=== PATIENT | female | born 1990 | race Caucasian/White ===

== ENCOUNTER → 2018-06-02 09:17 | Outpatient (CLI) | payer BC, SELFPAY ==
--- NOTE | 2018-06-02 09:21 | US_ITS ---
US transvaginal HISTORY: Pelvic pain, endometriosis, polycystic ovarian syndrome ITS.REASON: pelvic pain ORDERING PHYSICIAN: Cortez Bobo MD PATIENT AGE: 28 years Comparison: 04/23/2014 FINDINGS: The uterus is 9 x 3.7 x 4.5 cm with a combined endometrial thickness of 5 mm. No uterine mass evident. The left ovary is 3 x 2.8 cm and has a few small follicles. The right ovary is 5 x 5 cm and contains a 4 x 4 centimeters cyst. No internal echoes or septations. No cul-de-sac fluid evident. IMPRESSION: 1. 4 cm benign-appearing right ovarian cyst 2. Small follicles of the left ovary.
== END ==
PROVIDERS: Family Provider Family Medicine; Visit Provider Obstetrics & Gynecology
DX: R10.2 Pelvic and perineal pain (principal)
CPT/HCPCS: 76830

== ENCOUNTER → 2018-09-26 11:34 | Outpatient (CLI) | payer BC, SELFPAY ==
[2018-09-26 12:54] LABS: Basophils # 0.1 K/mm3 (0-0.2); Basophils % 0.5 % (0.1-2.0); Eosinophils % 0.3 % (0.1-12.0); Hematocrit 41.5 % (37.0-47.0); Hemoglobin 13.8 g/dL (12.2-16.2); Lymphocytes # 1.6 K/mm3 (0.7-4.5); Lymphocytes % 15.9 % (10-50); Mean Corpuscular HGB Conc 33.3 g/dL (31.8-35.4); Mean Corpuscular Hemoglobin 29.8 pg (27.0-31.2); Mean Corpuscular Volume 89.4 fl (81-99); Mean Platelet Volume 7.7 fl (7.4-10.4); Monocytes # 0.4 K/mm3 (0.1-1.0); Monocytes % 3.9 % (1.7-9.3); Neutrophils # 7.9 K/mm3 (1.8-7.8); Neutrophils % 79.4 % (37.0-80.0); Platelet Count 277 K/mm3 (142-424); Red Blood Count 4.64 M/mm3 (4.20-5.40); White Blood Count 9.9 K/mm3 (4.8-10.8)
[2018-09-26 13:10] LABS: Amphetamine/Metha Screen,Urine Negative ng/mL (<1000); Barbiturates Screen,Urine Negative ng/mL (<200); Benzodiazepines Screen,Urine Negative ng/mL (<200); Cannabinoid Screen,Urine Negative ng/mL (<50); Cocaine Screen,Urine Negative ng/mL (<300); Methadone Screen,Urine Negative ng/mL (<300); Opiate Screen,Urine Negative ng/mL (<300); Phencyclidine Screen,Urine Negative ng/mL (<25)
[2018-09-27 08:28] LABS: HIV Screen 4th Generation wRfx Non Reactive (Non Reactive)
[2018-09-27 14:18] LABS: Hepatitis B Surface Antigen Negative (Negative); Rapid Plasma Reagin Ab Titer Non Reactive (NonRea<1:1); Rubella Antibodies, IgG 2.26 index (Immune >0.99)
== END ==
PROVIDERS: Visit Provider Obstetrics & Gynecology
DX: Z34.90 Encounter for supervision of normal pregnancy, unspecified, unspecified trimester (principal)
CPT/HCPCS: 36415; 80305; 84443; 85025; 86592; 86703; 86762; 86850; 87340; G0432

== ENCOUNTER → 2018-09-28 10:42 | Outpatient (CLI) | payer BC, SELFPAY ==
[2018-09-28 13:43] LABS: Free Thyroxine Index 3.8 ug/dL (5.93-13.13); T4 (Thyroxine) 11.4 ug/dl (4.7-13.3); Thyroid Stimulating Hormone 0.11 uIU/ml (0.358-3.740); Triiodothryronine (T3) Uptake 33 % (31-39)
== END ==
PROVIDERS: Visit Provider Obstetrics & Gynecology
DX: Z34.90 Encounter for supervision of normal pregnancy, unspecified, unspecified trimester (principal); R79.89 Other specified abnormal findings of blood chemistry
CPT/HCPCS: 36415; 84436; 84443; 84479

== ENCOUNTER → 2018-11-20 13:35 | Outpatient (CLI) | payer BC, SELFPAY ==
[2018-11-23 02:15] LABS: AFP Value 27.3 ng/mL (.); DIA MoM 1.53 (.); DIA Value 234.79 pg/mL (.); DSR (Second Trimester) 1 IN 776 (.); Gest. Age on Collection Date 16.7 WEEKS (.); Maternal Age At EDD 29.9 yr (.); OSBR Risk 1 IN 10000 (.); Results Report (.); hCG MoM 2.01 (.); uE3 MoM 1.06 (.); uE3 Value 0.98 ng/mL (.)
[2018-11-23 07:48] LABS: Gestat. Age Based On EDD (.)
== END ==
PROVIDERS: Visit Provider Obstetrics & Gynecology
DX: Z34.90 Encounter for supervision of normal pregnancy, unspecified, unspecified trimester (principal); Z3A.16 16 weeks gestation of pregnancy
CPT/HCPCS: 36415; 82106

== ENCOUNTER → 2019-01-31 11:26 | Outpatient (CLI) | payer BC, SELFPAY ==
[2019-01-31 14:47] LABS: Glucose 1 Hour 137 mg/dL (74-106)
== END ==
PROVIDERS: Visit Provider Obstetrics & Gynecology
DX: Z34.90 Encounter for supervision of normal pregnancy, unspecified, unspecified trimester (principal)
CPT/HCPCS: 36415

== ENCOUNTER → 2019-02-01 10:44 | Outpatient (CLI) | payer BC, SELFPAY ==
[2019-02-01 11:08] LABS: Glucose,Fasting 79 mg/dL (60-105)
[2019-02-01 12:35] LABS: Glucose 1 Hour 129 mg/dL (74-106)
[2019-02-01 14:08] LABS: Glucose 2 Hour 138 mg/dL (74-106)
== END ==
PROVIDERS: Visit Provider Obstetrics & Gynecology
DX: Z34.90 Encounter for supervision of normal pregnancy, unspecified, unspecified trimester (principal)
CPT/HCPCS: 36415; 82951

== ENCOUNTER 2019-03-08 16:12 | Outpatient (CLI) | payer BC, SELFPAY ==
[2019-03-08 16:21] VITALS: BMI 35.7
[2019-03-08 16:33] VITALS: BP 138/80; PULSE 101; RESP 18; TEMP 36.8; O2SAT 99; BMI 35.7
[2019-03-08 16:34] LABS: Microscopic, Urine URINE MICROSCOPIC (MICROSCOPIC)
[2019-03-08 16:35] LABS: Appearance,Urine CLEAR (Clear); Bilirubin,Urine Negative (Negative); Blood, Urine Negative (Negative); Color,Urine YELLOW (Yellow); Glucose,Urine (UA) Negative (Negative); Ketones,Urine Negative (Negative); Leukocyte Esterase,Urine Negative (Negative); Nitrate,Urine Negative (Negative); Protein,Urine Negative (Negative); Urobilinogen,Urine 0.2 EU/dl (0.2)
[2019-03-08 16:43] LABS: Amphetamine/Metha Screen,Urine Negative ng/mL (<1000); Bacteria,Urine 4+ /lpf; Barbiturates Screen,Urine Negative ng/mL (<200); Benzodiazepines Screen,Urine Negative ng/mL (<200); Cannabinoid Screen,Urine Negative ng/mL (<50); Cocaine Screen,Urine Negative ng/mL (<300); Methadone Screen,Urine Negative ng/mL (<300); Opiate Screen,Urine Negative ng/mL (<300); Phencyclidine Screen,Urine Negative ng/mL (<25); WBC,Urine Occasional #/hpf (0-3)
[2019-03-08 17:23] LABS: Fetal Fibronectin (Rapid) Negative (Negative)
== END 2019-03-08 17:32 | disposition home or self-care (01) ==
LOC: OBOUT 16:13 → OB 16:13
PROVIDERS: PCP Family Medicine; Visit Provider Obstetrics & Gynecology
DX: O47.03 False labor before 37 completed weeks of gestation, third trimester (principal); Z3A.31 31 weeks gestation of pregnancy
CPT/HCPCS: 59025; 80305; 81001; 82731; 87077; 87086; 87088; 96372

== ENCOUNTER → 2019-04-03 15:06 | Outpatient (CLI) | payer BC, SELFPAY | PROVIDERS: Visit Provider Obstetrics & Gynecology | DX: Z34.90 Encounter for supervision of normal pregnancy, unspecified, unspecified trimester (principal) | CPT/HCPCS: 86403 ==

== ENCOUNTER 2019-04-19 03:37 | Inpatient (IN) ==
[2019-04-19 04:11] LABS: Microscopic, Urine URINE MICROSCOPIC (MICROSCOPIC)
[2019-04-19 04:14] LABS: Appearance,Urine CLEAR (Clear); Bilirubin,Urine Negative (Negative); Blood, Urine Negative (Negative); Color,Urine YELLOW (Yellow); Glucose,Urine (UA) Negative (Negative); Ketones,Urine Negative (Negative); Leukocyte Esterase,Urine Negative (Negative); PH,Urine 6.5 (5.0-8.5); Protein,Urine Negative (Negative); Urobilinogen,Urine 0.2 EU/dl (0.2)
[2019-04-19 04:22] LABS: Amphetamine/Metha Screen,Urine Negative ng/mL (<1000); Barbiturates Screen,Urine Negative ng/mL (<200); Benzodiazepines Screen,Urine Negative ng/mL (<200); Cannabinoid Screen,Urine Negative ng/mL (<50); Cocaine Screen,Urine Negative ng/mL (<300); Methadone Screen,Urine Negative ng/mL (<300); Opiate Screen,Urine Negative ng/mL (<300); Phencyclidine Screen,Urine Negative ng/mL (<25)
[2019-04-19 04:23] LABS: Bacteria,Urine Trace /lpf; Squamous Epithelial Cell,Urine Occasional #/hpf (0-5); WBC,Urine Occasional #/hpf (0-3)
[2019-04-19 05:39] LABS: Basophils % 0.3 % (0.1-2.0); Eosinophils # 0.1 K/mm3 (0.0-0.4); Eosinophils % 0.6 % (0.1-12.0); Hematocrit 38.4 % (37.0-47.0); Hemoglobin 12.2 g/dL (12.2-16.2); Lymphocytes # 2.2 K/mm3 (0.7-4.5); Lymphocytes % 19.2 % (10-50); Mean Corpuscular HGB Conc 31.7 g/dL (31.8-35.4); Mean Corpuscular Volume 86.7 fl (81-99); Mean Platelet Volume 8.4 fl (7.4-10.4); Monocytes # 0.6 K/mm3 (0.1-1.0); Neutrophils # 8.8 K/mm3 (1.8-7.8); Platelet Count 292 K/mm3 (142-424); Red Blood Count 4.43 M/mm3 (4.20-5.40); Red Cell Distribution Width 14.7 % (11.5-17.5); White Blood Count 11.7 K/mm3 (4.8-10.8)
[2019-04-19 05:55] LABS: Anion Gap 15.6 mEq/L (5-15); Calcium 8.6 mg/dL (8.5-10.1)
--- NOTE | 2019-04-19 07:08 | Progress Note ---
Internal Medicine - PN: Subj *Date: 04/19/19 *Time: 07:06 Interval history: This 28-year-old 3 para 2 AB 0 white female with 2 previous sections was admitted in active labor at 3 cm of dilatation at 38-2/7 weeks. She had been scheduled for a repeat section and bilateral tubal ligation next week. On admission the patient is uncomfortable. Her cervix is 3 cm dilated. The baby appears to be in a breech position. Plan is to proceed to repeat and tubal ligation this morning. Exam Vital signs and Labs for Last 24 Hours: Temp Pulse Resp BP Pulse Ox 98.4 F 89 18 144/81 H 100 04/19/19 03:58 04/19/19 03:58 04/19/19 03:58 04/19/19 03:58 04/19/19 03:58 Laboratory Results - last 24 hr 04/19/19 03:55: Urine Color Yellow, Urine Appearance Clear, Urine pH 6.5, Ur Sp ecific [place] 1.010, Urine Protein Negative, Urine Glucose (UA) Negative, Urine Ketones Negative, Urine Blood Negative, Urine Nitrate Negative, Urine Bilirubin Negative, Urine Urobilinogen 0.2, Ur Leukocyte Esterase Negative, Urine WBC Occasional, Ur Squamous Epith Cells Occasional, Urine Bacteria Trace 04/19/19 03:55: Membrane Rupture Negative 04/19/19 03:55: Urine Opiates Screen Negative, Urine Methadone Screen Negative, Ur Barbituates Screen Negative, Ur Phencyclidine Scrn Negative, Ur Amphetamines Screen Negative, U Benzodiazepines Scrn Negative, Urine Cocaine Screen Negative, U Marijuana (THC) Screen Negative 04/19/19 05:20: WBC 11.7 H, RBC 4.43, Hgb 12.2, Hct 38.4, MCV 86.7, MCH 27.5, MCHC 31.7 L, RDW 14.7, Plt Count 292, MPV 8.4, Neut % (Auto) 75.0, Lymph % (Auto) 19.2, [place] % (Auto) 5.0, Eos % (Auto) 0.6, Baso % (Auto) 0.3, Neut # (Auto) 8.8 H, Lymph # (Auto) 2.2, [place] # (Auto) 0.6, Eos # (Auto) 0.1, Baso # (Auto) 0.0 04/19/19 05:20: Sodium 135 L, Potassium 3.6, Chloride 104, Carbon Dioxide 19 L, Anion Gap 15.6 H, BUN 7, Creatinine 0.59, Estimated Creat Clear 191, Estimated GFR 121, Est GFR ( Amer) 146, Glucose 85, Calcium 8.6 I & O for Last 24 hours: Intake & Output 04/16/19 04/17/19 04/18/19 04/19/19 11:59 11:59 11:59 11:59 Weight 190 lb
--- NOTE | 2019-04-19 07:31 | Progress Note ---
[facility] Anesthesia Checklist - Structural Data Admitted From: Inpatient Planned Operative Procedure/s: c/section Consent for Planned Operative Procedure(s) Verified: Yes - Airway Assessment C-Spine Mobility Assessed: Yes TMJ Mobility Assessed: Yes Dentition: Good Dentition - Neurological Assessment Level of Consciousness: Awake, Alert, Appropriate - Anesthesia Plan Anesthesia Risk discussed: Yes Anesthesia Plan: Verified ASA Class: II Anesthesia Type: Spinal [facility] History I have reviewed the patient's past medical history: Yes *Have you ever received a pneumonia vaccine?: No *Have you received a flu vaccine this season?: No Other Medical History: Reports: Other Other Surgeries: Yes: , Other Amputation: No Fractures: No - *Social History Smoking Status: Never smoker Alcohol Intake: never Alcohol Intake Frequency:: other Substance Use Type: denies use *Occupational Status:: employed *Travel in the last 8 weeks: None Family Hx:: Coronary Artery Disease, Cancer Para: 2
--- NOTE | 2019-04-19 08:30 | Progress Note ---
[facility] Anesthesia Record Part I Intake, IV Amount: 1,600 Estimated blood loss (mL): 800 Urine output (mL): 0 (NM) Blood Products used (#): none Blood Pressure: 134/65 SaO2: 98 Pulse Rate: 88 Respiratory Rate: 16 Temperature: 97.5 F Patient is:: Awake, Stable Stable to PACU at:: 08:25
--- NOTE | 2019-04-19 08:30 | Progress Note ---
[facility] Anesthesia Record Part II Discharge Time: 08:55 Destination: Obstetric PACU nurse assessment reviewed?: Yes Patient Condition:: Good Anesthesia Complications:: None Swallowing reflex intact?: Yes Cyanosis?: No
--- NOTE | 2019-04-19 08:30 | Operative Note ---
Date of procedure: 04/19/19 Pre-op Diagnosis:: 1. Term intrauterine , in labor. 2. Previous sections. 3. Breech presentation. 4. Desire for sterilization. Post-op Diagnosis:: Same, 9/9, 6 pound 3 ounce, 18.5 inch female , born at 0750. Procedure performed:: Repeat low transverse cervical section, breech extraction, bilateral tubal ligation. Surgeon:: Cortez Bobo MD Clinical Trial Associate(s):: SIRIA Casas STAFF FORESTER:: Delvin Sahni Anesthesia: spinal Estimated blood loss (mL): 400 Operative findings:: Breech presentation, previous sections. Operative note:: After the patient was prepped and draped in usual fashion and spinal anesthesia was administered, a low Pfannenstiel incision was made through the previous incision, and the fat and fascia were in the usual fashion, bleeders being clamped and coagulated along the way. The peritoneum was entered with Metzenbaum scissors and extended above and below. The bladder peritoneum was sharply and bluntly dissected from the area of incision, and the bladder was protected with a bladder blade. The uterus was entered in low transverse fashion with a knife, and the incision was extended bluntly, bilaterally. The baby was found to be in the LST position of the breech and, with appropriate f undal pressure, a breech extraction was easily accomplished. There was a loose nuchal cord x1 the cord pH is pending. The baby was handed into the arms of the attending pallet assembler, Dr. Siegel, who assigned Apgars of 9 at 1 minute and 9 at 5 minutes to this 6 pound 3 ounce, 18.5 inch female , born at 0750. Baby was taken to the nursery in excellent condition, along with the father, who is been present in the operating room. The placenta was delivered manually, intact. A ring forceps was used to assure adequate drainage to the cervix; this was then passed off the field, as a nonsterile instrument. The uterus was closed in 2 layers, the first a running lock suture of #1 Vicryl as an endometrial layer, followed by a running unlocked suture with #1 Vicryl as a myometrial layer, imbricating over the first. The bladder peritoneum was closed with a running unlocked suture of 2-0 Vicryl. Blood and clots were then swept from the gutters, and the tubes and ovaries were inspected and found to be normal. The patient was again asked if she wished to proceed with tubal sterilization, and she concurred. Therefore, first the right tube in the left was grasped in its midsection. The base of the tented up portion of each tube was crushed with a Tomeka clamp, and ligated with 2-0 Vicryl. The intervening segments of the tubes were excised with Metzenbaum scissors, and the stump coagulated with the Bovie. There was no undue bleeding. The peritoneum was grasped with 3 Tomeka clamps, and closed with a running semi-lock suture of 0 Vicryl. The muscle was approximated with a running unlocked suture of 0 Vicryl. Fascia was closed with a running lock suture of #1 Vicryl. The subcutaneous fat and Viviana's fascia were closed with a running unlocked suture of 2-0 Vicryl. The skin was closed with a subcuticular suture of 3-0 Vicryl, and appropriately dressed. The sponge needle count was correct. The estimated blood loss was 400 cc. The urine is clear in the Hopper catheter. A pelvic examination at the close of the procedure expressed blood and clots from the involuting uterus, with IV Pitocin running. The patient tolerated the procedure well, and was taken to PACU in excellent condition. Her blood type is O+. Her rubella titer is immune. She plans to breast-feed. Condition: stable Disposition: PACU Specimens:: Bilateral tubal segments Complications:: None
--- NOTE | 2019-04-19 14:01 | Pharmacy Consult Notes ---
[facility] Pharmacy VTE Monitoring - Patient Demographics Admission date: 04/19/19 Report Date: 04/19/19 Time: 14:01 Allergies/Adverse Reactions: Patient Allergies progesterone Adverse Reaction (Severe, Verified 04/17/19 10:22) skin reaction adhesive tape Adverse Reaction (Mild, Verified 04/19/19 05:52) RED SKIN Height: 1.52 m Weight: 86.183 kg - VTE Risk Labs: VTE Related Lab Results Hgb 12.2 g/dL (12.2-16.2) 04/19/19 05:20 Hct 38.4 % (37.0-47.0) 04/19/19 05:20 Plt Count 292 K/mm3 (142-424) 04/19/19 05:20 BUN 7 mg/dL (7-18) 04/19/19 05:20 Creatinine 0.59 mg/dL (0.55-1.02) 04/19/19 05:20 Estimated Creat Clear 191 mL/min (50-200) 04/19/19 05:20 Clinical Trial Participant: No - Prophylaxis VTE Prophylaxis Ordered?: Yes Types of VTE Prophylaxis: IPCS Knee High (POST OP)
[2019-04-20 06:44] LABS: Hemoglobin 8.9 g/dL (12.2-16.2)
--- NOTE | 2019-04-20 07:18 | Progress Note ---
Internal Medicine - PN: Subj *Date: 04/20/19 *Time: 07:16 Interval history: This is /postop day #1. The patient is afebrile. Vital signs stable. Wound clean. Abdomen soft. Lochia normal. Uterine fundus involuting well. She experienced some dizziness/nausea during the night (upon standing) and states that she has motion sickness. She was initially treated with Phenergan without help, and subsequently with meclizine, which has relieved the symptoms. Her hemoglobin is 8.9 g. I am going to start her on oral iron. Her Hopper is out and she has voided well. Exam Vital signs and Labs for Last 24 Hours: Temp Pulse Resp BP Pulse Ox 97.5 F L 86 17 123/67 98 04/19/19 09:25 04/19/19 09:25 04/19/19 09:25 04/19/19 09:25 04/19/19 09:25 Laboratory Results - last 24 hr 04/19/19 02:35: Urine Color Yellow, Urine Appearance Clear, Urine pH 6.5, Ur Specific [place] <= 1.005, Urine Protein Negative, Urine Glucose (UA) Negative, Urine Ketones Negative, Urine Blood Negative, Urine Nitrate Negative, Urine Bilirubin Negative, Urine Urobilinogen 0.2, Ur Leukocyte Esterase Negative, Urine WBC Occasional, Urine Bacteria Trace 04/19/19 07:54: Cord ABG pH 7.42 04/20/19 05:20: Hgb 8.9 L D, Hct 28.0 L I & O for Last 24 hours: Intake & Output 04/17/19 04/18/19 04/19/19 04/20/19 11:59 11:59 11:59 11:59 Intake Total 1600 / 1600 Output Total 225 / 225 400 / 400 Balance 1375 / 1375 -400 / -400 Weight 190 lb
--- NOTE | 2019-04-21 08:49 | Progress Note ---
Internal Medicine - PN: Subj *Date: 04/21/19 *Time: 08:48 Interval history: This is /postoperative day #2. The patient is afebrile. Vital signs stable. Wound clean. Abdomen soft. Lochia normal. Uterine fundus involuting well. Her dizziness has resolved. Her hemoglobin is 8.9 g; oral iron has been ordered, but the patient has refused it. She is clinically stable. Nursing well. Exam Vital signs and Labs for Last 24 Hours: Temp Pulse Resp BP Pulse Ox 97.5 F L 86 17 123/67 98 04/19/19 09:25 04/19/19 09:25 04/19/19 09:25 04/19/19 09:25 04/19/19 09:25 I & O for Last 24 hours: Intake & Output 04/18/19 04/19/19 04/20/19 04/21/19 11:59 11:59 11:59 11:59 Intake Total 1600 / 1600 Output Total 225 / 225 400 / 400 Balance 1375 / 1375 -400 / -400 Weight 190 lb
--- NOTE | 2019-04-22 08:44 | Progress Note ---
Internal Medicine - PN: Subj *Date: 04/22/19 *Time: 08:44 Interval history: This is /postop day #3. The patient is afebrile. Vital signs stable. Wound clean. Abdomen soft. Lochia normal. Uterine fundus involuting well. Nursing well. She will be discharged today. Exam Vital signs and Labs for Last 24 Hours: Temp Pulse Resp BP Pulse Ox 98.0 F 78 17 119/59 L 99 04/21/19 08:00 04/21/19 08:00 04/21/19 08:00 04/21/19 08:00 04/21/19 08:00 I & O for Last 24 hours: Intake & Output 04/19/19 04/20/19 04/21/19 04/22/19 11:59 11:59 11:59 11:59 Intake Total 1600 / 1600 Output Total 225 / 225 400 / 400 Balance 1375 / 1375 -400 / -400 Weight 190 lb
--- NOTE | 2019-04-22 08:47 | Discharge Summary ---
General - General Admission date:: 04/19/19 Discharge date: 04/22/19 (This 28-year-old 3, now para 3, Ab0 white female was admitted in active labor at 38-2/7 weeks with a history of 2 previous sections. She had been scheduled for a repeat section and bilateral tubal ligation the following week. She was taken to the operating room, where she underwent a repeat low transverse cervical section and bilateral tubal ligation without complications under spinal anesthesia. The baby was an 9/9, 6 pound 3 ounce, 18.5 inch female , who is breast- feeding, and is done well. , the patient is done well. She is eating and ambulating, and has had a bowel movement. Her wound is clean. Her abdomen is soft. Her lochia is normal. Her uterine fundus is involuting well. She is breast-feeding well. She is not a smoker. Her blood type is O+. Her rubella titer is immune. She is discharged home on the third /postoperative day on iron and vitamins (hemoglobin 8.9 g, but clinically stable), and on Tylenol and Motrin, as needed for pain. She is given appropriate instructions as to diet, exercise, and wound care, and she is to return the office in 2 weeks for follow-up.) Hospital Course Rhogam Administration: Not Indicated Objective Vital signs: Temp Pulse Resp BP Pulse Ox 98.0 F 78 17 119/59 L 99 04/21/19 08:00 04/21/19 08:00 04/21/19 08:00 04/21/19 08:00 04/21/19 08:00 Discharge Plan - Patient Discharge Instructions Additional Instructions: NO DRIVING FOR 2 WEEKS NO HEAVY LIFTING OR STRENUOUS ACTIVITY NOTHING IN VAGINA FOR 6 W[address]KS FOLLOW-UP WITH DR. MCLAUGHLIN IN 2 WEEKS Patient Instructions: How to Care for a Surgical Wound, Depression, DI for Prescription Opioid Use, [facility] Post Discharge Instructions - Follow up Plan Home Medications: Home Medications Medication Instructions Recorded Confirmed Type vitamins no.106-iron 27.5 1 cap PO DAILY 09/26/18 04/19/19 History mg-folate no.6 1 mg-dha capsule promethazine 25 mg tablet 25 mg PO Q6H PRN 30 Days #30 tab 09/26/18 04/19/19 Rx Prescriptions/Medication Reconciliation: No Action vitamins no.106-iron 27.5 mg-folate no.6 1 mg-dha capsule 1 cap PO DAILY promethazine 25 mg tablet 25 mg PO Q6H PRN 30 Days #30 tab PRN Reason: nausea and vomiting
[2019-04-22 09:21] VITALS: BP 121/87
== END 2019-04-22 10:00 | disposition home or self-care (01) | DRG 785 ==
LOC: OBOUT 03:37 → OB 03:40
PROVIDERS: ADMIT Obstetrics & Gynecology; ATTEND Obstetrics & Gynecology
CPT/HCPCS: 36415; 59025; 80048; 80305; 81001; 82800; 84112; 85014; 85018; 85025; 86850; 94761; J2405

== ENCOUNTER → 2020-11-28 11:08 | Outpatient (CLI) | payer BC, SELFPAY ==
[2020-11-28 12:49] LABS: Basophils % 0.6 % (0.1-2.0); Eosinophils # 0.1 K/mm3 (0.0-0.4); Eosinophils % 0.9 % (0.1-12.0); Hematocrit 42.7 % (37.0-47.0); Hemoglobin 13.9 g/dL (12.2-16.2); Lymphocytes # 2.2 K/mm3 (0.7-4.5); Lymphocytes % 31.8 % (10-50); Mean Corpuscular HGB Conc 32.5 g/dL (31.8-35.4); Mean Corpuscular Hemoglobin 29.1 pg (27.0-31.2); Mean Corpuscular Volume 89.5 fl (81-99); Mean Platelet Volume 7.8 fl (7.4-10.4); Monocytes # 0.4 K/mm3 (0.1-1.0); Monocytes % 5.5 % (1.7-9.3); Neutrophils # 4.3 K/mm3 (1.8-7.8); Neutrophils % 61.2 % (37.0-80.0); Platelet Count 260 K/mm3 (142-424); Red Blood Count 4.77 M/mm3 (4.20-5.40); Red Cell Distribution Width 13.1 % (11.5-17.5)
[2020-11-28 13:35] LABS: Chloride 107 mmol/L (98-107); Potassium 4.2 mmoL/L (3.5-5.1); Sodium 138 mmol/L (136-145)
[2020-11-28 13:38] LABS: Alanine Aminotransferase 29 U/L (12-78); Albumin Level 4.1 g/dl (3.5-5.0); Albumin/Globulin Ratio 1.2 (1.1-1.8); Alkaline Phosphatase 55 U/L (38-126); Anion Gap 8.2 mEq/L (5-15); Aspartate Amino Transferase 30 U/L (14-36); Bilirubin,Total 0.5 mg/dl (0.2-1.3); Blood Urea Nitrogen 12 mg/dl (7-17); Calcium 9.2 mg/dl (8.4-10.2); Carbon Dioxide 27 mmol/L (22.0-30.0); Estimated Glomerular Filt Rate 117 ml/min (>60); GFR (African American) 141 ML/MIN (>60); Globulin 3.3 g/dL (1.3-3.2); Glucose 97 mg/dl (74-100); Total Protein,Serum 7.4 g/dl (6.3-8.2)
[2020-11-28 14:35] LABS: Coronavirus 19 IgG Antibody Negative (Negative); Coronavirus 19 IgM Antibody Negative (Negative)
[2020-11-28 15:56] LABS: HCG Qualitative, Serum Negative (Negative)
[2020-11-28 19:59] LABS: Amphetamine/Metha Screen,Urine Negative ng/ml (<1000)
[2020-11-28 20:00] LABS: Barbiturates Screen,Urine Negative ng/ml (<200)
[2020-11-28 20:01] LABS: Benzodiazepines Screen,Urine Negative ng/ml (<200); Cannabinoid Screen,Urine Negative ng/ml (<50)
[2020-11-28 20:02] LABS: Cocaine Screen,Urine Negative ng/ml (<300); Methadone Screen,Urine Negative ng/ml (<300)
[2020-11-28 20:04] LABS: Opiate Screen,Urine Negative ng/ml (<300); Phencyclidine Screen,Urine Negative ng/ml (<25)
== END ==
LOC: LAB 11:08 → COVID.OUT 11:51
PROVIDERS: PCP Family Medicine; Visit Provider Obstetrics & Gynecology
DX: Z01.818 Encounter for other preprocedural examination (principal); Z20.822 Contact with and (suspected) exposure to COVID-19; R10.2 Pelvic and perineal pain; N92.0 Excessive and frequent menstruation with regular cycle; N94.6 Dysmenorrhea, unspecified; N80.6 Endometriosis in cutaneous scar; N73.6 Female pelvic peritoneal adhesions (postinfective)
CPT/HCPCS: 36415; 80053; 80305; 84703; 85025; 86328; U0003

== ENCOUNTER 2020-12-01 06:55 | Inpatient (IN) | payer BC, SELFPAY ==
[2020-11-25 11:30] VITALS: BMI 35.9
[2020-12-01] VITALS (27 sets, daily range): BP systolic 92–127; BP diastolic 47–74; PULSE 67–92; RESP 16–18; TEMP 36.2–43; O2SAT 94–100
--- NOTE | 2020-12-01 08:36 | [facility].HP ---
*Admission Date: 12/01/20 *Chief complaint: Heavy menstrual bleeding, pelvic pain *History of present illness: Heavy menstrual bleeding, frequently requiring double protection Moderate-severe dysmenorrhea, causing missed activities Intermittent severe pelvic pain, bilateral but more prominent on left than right Previous infertility issues and diagnosed with endometriosis via laparoscopy Ultimately she reports 5-7 different laparoscopy surgeries for management of endometriosis, noting that Dr. Bobo had to clean her out She also has a history of 3 previous C Sections and reports extensive adhesions noted during surgeries Desires definitive surgical management with hysterectomy and prefers removal of left ovary if right ovary appears normal and able to be preserved [facility] History I have reviewed the patient's past medical history: Yes Medical History: Denies:: Cancer, Diabetes Mellitus Type 1, Diabetes Mellitus Type 2, MRSA, Seizures *Have you ever received a pneumonia vaccine?: No *Have you received a flu vaccine this season?: No Other Medical History: Reports: Other. Denies: Blood Transfusion Reaction Laterality Cases: Bilateral: Myringotomy (Ear Tubes) Other Surgeries: Yes: , Other Amputation: No Fractures: No - *Social History Last grade of school completed: High school graduate Smoking Status: Never smoker Alcohol Intake: never Alcohol Intake Frequency:: other Substance Use Type: denies use *Occupational Status:: employed Housing: house Household Members: spouse, children *Travel in the last 8 weeks: None Family Hx:: No significant family history Review of Systems - Review of Systems Review of systems:: pertinent systems reviewed and negative unless documented below - *Genitourinary Reports abnormal vaginal bleeding, Reports painful periods, Reports pelvic pain Meds Home Medications Medication Instructions Recorded Confirmed Type No Known Home Medications 12/01/20 12/01/20 History Allergies Allergy/AdvReac Type Severity Reaction Status Date / Time progesterone AdvReac Severe skin Verified 12/01/20 07:24 reaction hydromorphone [From Dilaudid] AdvReac Intermediate Vomiting Verified 12/01/20 07:24 adhesive tape AdvReac Mild RED SKIN Verified 12/01/20 07:24 Exam Vital signs and Labs for Last 24 Hours: Temp Pulse Resp BP Pulse Ox 97.2 F L 67 18 127/74 98 12/01/20 07:31 12/01/20 07:31 12/01/20 07:31 12/01/20 07:31 12/01/20 07:31 - Constitutional no acute distress - *Routine HEENT Exam Head: Present: normocephalic, atraumatic Eye: Absent: conjunctival icterus ENT: Present: mucous membranes moist - *Routine Neck Exam Present: supple - Routine Chest/Breast/Axilla Exam Chest wall: Absent: tenderness - *Routine Respiratory Exam Present: CTA bilaterally. Absent: respiratory distress - *Routine Cardiovascular Exam Present: RRR - *Routine Abdominal Exam Present: soft. Absent: tenderness, distended - *Routine Exam External: Absent: tenderness, lesions - *Routine Extremities Exam Absent: edema - *Routine Skin Exam Absent: rash - *Routine Neurological Exam Present: alert, oriented X3 - Routine Psychiatric Exam Present: normal affect Assessment and Plan (1) Heavy menstrual bleeding Status: Acute Category: Medical Code(s): N92.0 - Excessive and frequent menstruation with regular cycle (2) Severe dysmenorrhea Status: Acute Category: Medical Code(s): N94.6 - Dysmenorrhea, unspecified (3) Pelvic pain in female Status: Acute Category: Medical Code(s): R10.2 - Pelvic and perineal pain (4) Endometriosis Status: Acute Category: Medical Code(s): N80.9 - Endometriosis, unspecified (5) Pelvic adhesions Status: Acute Category: Medical Code(s): N73.6 - Female pelvic peritoneal adhesions (postinfective) (6) Previous section Problem details: x3 Status: Acute Category: Surgical Code(s): Z98.891 - Hist
--- NOTE | 2020-12-01 09:03 | P.PN_ITS ---
[facility] Anesthesia Checklist - Patient Identification Patient Identification: Arm Band - Structural Data Admitted From: Home Planned Operative Procedure/s: YOVANNY, Possible BSO Consent for Planned Operative Procedure(s) Verified: Yes Verified Documents: Surgical Consent, History and Physical - NPO Status Verified Time NPO: 00:00 - Additional verifications Anesthesia Reactions: Yes (PONV) Hx Blood Transfusions: No Blood Transfusion Reaction: No - Airway Assessment C-Spine Mobility Assessed: Yes (mp2) TMJ Mobility Assessed: Yes Dentition: Good Dentition - Neurological Assessment Level of Consciousness: Awake, Alert - Anesthesia Plan Anesthesia Risk discussed: Yes Anesthesia Plan: Verified ASA Class: II Anesthesia Type: General w/block (Bilateral TAP block. Risks/benefits explained. Pt verbalizes understanding) [facility] History I have reviewed the patient's past medical history: Yes Medical History: Denies:: Cancer, Diabetes Mellitus Type 1, Diabetes Mellitus Type 2, MRSA, Seizures *Have you ever received a pneumonia vaccine?: No *Have you received a flu vaccine this season?: No Other Medical History: Reports: Other. Denies: Blood Transfusion Reaction Anesthesia experience/problems:: PONV Laterality Cases: Bilateral: Myringotomy (Ear Tubes) Other Surgeries: Yes: , Other Amputation: No Fractures: No - *Social History Last grade of school completed: High school graduate Smoking Status: Never smoker Alcohol Intake: never Alcohol Intake Frequency:: other Substance Use Type: denies use *Occupational Status:: employed Housing: house Household Members: spouse, children *Travel in the last 8 weeks: None Family Hx:: No significant family history
--- NOTE | 2020-12-01 11:38 | P.PN_ITS ---
[facility] Anesthesia Record Part I Intake, IV Amount: 2,000 Estimated blood loss (mL): 1,000 Urine output (mL): 250 Blood Pressure: 110/60 SaO2: 94 Pulse Rate: 83 Respiratory Rate: 16 Temperature: 99.9 F Patient is:: Drowsy, Stable Stable to PACU at:: 11:30
[2020-12-01 11:52] LABS: Hematocrit 33.5 % (37.0-47.0); Hemoglobin 10.9 g/dL (12.2-16.2)
[2020-12-01 12:20] LABS: POC Glucose,Bedside 193 (70-110)
--- NOTE | 2020-12-01 12:32 | PC.NURSE ---
Report received from GHAZALA PeresU RN
--- NOTE | 2020-12-01 12:45 | PC.NURSE ---
Pt. arrived to room 280, via bed, accompanied by PACU staff x2, and S.O.
--- NOTE | 2020-12-01 12:59 | HMH.OPNOTE ---
Date of procedure: 12/01/20 Pre-op Diagnosis:: 1. Heavy menstrual bleeding 2. Severe dysmenorrhea 3. Pelvic Pain 4. Pelvic adhesions 5. Endometriosis 6. Previous CS x 3 Post-op Diagnosis:: same Procedure performed:: Abdominal supracervical hysterectomy left salpingo-oophorectomy lysis of extensive/dense adhesions Surgeon:: Khushboo Jordan MD SPECIAL NEEDS NANNY:: Cuauhtemoc Jc Anesthesia: GETA Estimated blood loss (mL): 1,000 Operative findings:: grossly normal appearing uterus grossly normal appearing ovaries bilaterally extensive dense pelvic adhesions Operative note:: The patient was taken to the operating room and general anesthesia was administered without difficulty. She was prepped and draped in the supine position. A Pfannenstiel skin incision was made approximately 2 cm above the pubic symphysis with a scalpel and carried down to the underlying layer of fascia. The fascia was incised in the midline and extended laterally sharply. The rectus muscles were sharply dissected off the fascia and in the midline. The peritoneum was turned and sharply, with good visualization of the underlying structures. The peritoneal incision was extended bluntly. A survey of the patient's pelvis and abdomen revealed the findings noted above. At this time, the patient was placed in Trendelenburg and a Roe retractor was placed in the abdomen; the bowel was packed with moist laparotomy sponges. A double tooth tenaculum was placed on the uterine fundus and the uterus was elevated out of the pelvis. No fibroids or other visible uterine lesions were noted, however bladder adhesions to the uterus were extensive and dense. 20 minutes of time were spent in lysis of bladder adhesions prior to the beginning the hysterectomy. Both sharp and blunt dissection were utilized, with no evidence of bladder injury. The round ligaments were identified and transected and suture-ligated. The anterior lip of the broad ligament was dissected medially on both sides and the bladder flap was further dissected. The posterior leaf of the broad ligament was dissected until the ureters were able to be identified on either side and noted to be free of the forthcoming adnexal pedicles. Infundibulopelvic ligaments were doubly clamped transected and suture ligated on either side, with excellent hemostasis noted. The left ovary and fallopian tube were clamped laterally in order to remove with the uterus, but the right ovary was clamped medially in order to preserve the right ovary. The uterine arteries were skeletonized on either side, and were clamped, transected and suture ligated with excellent hemostasis. The bladder flap was further bluntly dissected off the lower uterine segment with an additional 10 minutes spent in lysis of adhesions, however the adhesions were dense and could not be safely dissected low enough for a total hysterectomy, and a decision was made to proceed with a supracervical hysterectomy. The uterus was amputated from the cervix with the bovie; the uterus, left ovary and left fallopian tube were sent for pathology. The cervix was oversewn in an interrupted fashion. The pelvis was copiously irrigated with a solution of sterile water. The cuff was hemostatic. All pedicles were reexamined and remained hemostatic. All instruments were removed from the patient's abdomen. The peritoneum was closed with 2-0 Vicryl in a running fashion. The fascia was closed with 0 Vicryl in a running fashion. The skin was closed with shruthi. The patient tolerated the procedure well; sponge/lap/needle and instrument counts were correct ?2. She was taken to the recovery room awake in stable condition. Estimated blood loss: 1000cc. Condition: stable Disposition: PACU Specimens:: uterus left fallopian tube and ovary Complications:: none
[2020-12-01 13:58] LABS: Microscopic,Cath URINE MICROSCOPIC (MICROSCOPIC)
[2020-12-01 14:02] LABS: Appearance,Urine/Cath CLEAR (Clear); Bilirubin,Cath Negative (Negative); Blood, Urine/Cath Negative (Negative); Color,Urine/Cath YELLOW (Yellow); Glucose,Urine/Cath (UA) Negative (Negative); Ketones,Urine/Cath Negative (Negative); Leukocyte Esterase,Cath Negative (Negative); Nitrate,Cath Negative (Negative); Protein,Urine/Cath Negative (Negative); Urobilinogen,Cath 0.2 EU/dl (0.2)
[2020-12-01 14:33] LABS: RBC,Urine/Cath Occasional # /hpf (0-3); Squamous Epithelial Ur./Cath Occasional #/hpf (0-5)
--- NOTE | 2020-12-01 15:50 | SUR.OPER ---
1043- late entry: family updated at this time
[2020-12-01 17:03] LABS: Hematocrit 31.5 % (37.0-47.0); Hemoglobin 10.3 g/dL (12.2-16.2)
--- NOTE | 2020-12-01 22:18 | PC.NURSE ---
patient reports feeing increased pressure in her bladder. I attempted several times to check for kinks and reposition with little success at relieving the pressure. patient requested bell to be removed. Bell removed. 10ml of saline removed from the balloon and bell taken out with no difficulty.
[2020-12-02] VITALS (9 sets, daily range): BP systolic 88–107; BP diastolic 43–61; PULSE 73–88; RESP 16–20; TEMP 36.4–37.2; O2SAT 96–100
--- NOTE | 2020-12-02 00:10 | PC.NURSE ---
patient ambulated to bathroom at this time. tolerated ambulation well with standby assist. no other needs voiced. scuds reattached when patient was back in bed.
--- NOTE | 2020-12-02 00:30 | PC.NURSE ---
Patient complaining of mild gas pain at this time. medication offered and patient agreeable.
--- NOTE | 2020-12-02 04:15 | PC.NURSE ---
Patient has remained stable this shift. her bell catheter was removed and her output has been steady. she is voiding freely with no difficulty. her pain has been intermittent but managed with medication. Her lungs were clear to auscultation bilaterally. bowel sounds present and active in all quadrants. patient's telfa and tegaderm dressing remains unchanged since beginning of the shift with a few small spots of serosang drainage. Patient continues to wear scuds when she isn't ambulating. her skin is clean, dry and intact. Patient ambulates well with standby assistance to and from the bathroom. Patient states that her gas pain is much better at this time and that she feels like the medication and ambulating have really helped. No other changes. Patient denies needs.
--- NOTE | 2020-12-02 06:25 | PC.NURSE ---
Lab at bedside to draw H&H
[2020-12-02 06:53] LABS: Hematocrit 26.8 % (37.0-47.0)
--- NOTE | 2020-12-02 06:57 | PC.NURSE ---
ALL CARE AND CHARTING UNDER MY DIRECT SUPERVISION
[2020-12-02 06:59] LABS: Chloride 107 mmol/L (98-107); Sodium 136 mmol/L (136-145)
[2020-12-02 07:00] LABS: Hemoglobin 8.8 g/dL (12.2-16.2)
[2020-12-02 07:02] LABS: Blood Urea Nitrogen 11 mg/dl (7-17); Creatinine Clearance Estimated 179 mL/min (50-200); Estimated Glomerular Filt Rate 117 ml/min (>60); GFR (African American) 141 ML/MIN (>60)
[2020-12-02 07:03] LABS: Calcium 7.9 mg/dl (8.4-10.2); Carbon Dioxide 27 mmol/L (22.0-30.0); Glucose 120 mg/dl (74-100)
--- NOTE | 2020-12-02 09:00 | P.PN_ITS ---
[facility] Anesthesia Record Part II Discharge Time: 12:50 Destination: Obstetric PACU nurse assessment reviewed?: Yes Patient Condition:: Good Anesthesia Complications:: None Swallowing reflex intact?: Yes Cyanosis?: No Blood Pressure: 107/57 Pulse Rate: 74 Temperature: 97.6 F Mental Status: Alert & Oriented Pain level:: 5 Nausea and/or vomitting:: None Intake, IV Amount: 0
--- NOTE | 2020-12-02 09:53 | PC.NURSE ---
PATIENT GETTING INTO SHOWER AT THIS TIME. IS HELPING HER. NO CURRENT NEEDS. GOING TO SWITCH OVER TO PO PAIN MEDS WHEN SHE GETS BACK IN BED
--- NOTE | 2020-12-02 10:01 | PC.NURSE ---
BED LINENS CHANGED AT THIS TIME
--- NOTE | 2020-12-02 10:35 | PC.NURSE ---
Incisional care done at this time. cleansed with 1/2 peroxide and 1/2 sodium chloride. patient tolerated well. No s/s of infection noted. Irritation from tape noted. Education provided on wound care. Patient has had previous c section- she knows wound care.
--- NOTE | 2020-12-02 11:30 | HMH.PHAVTE ---
[facility] Pharmacy VTE Monitoring - Patient Demographics Admission date: 12/01/20 Report Date: 12/02/20 Time: 11:30 Allergies/Adverse Reactions: Patient Allergies progesterone Adverse Reaction (Severe, Verified 12/01/20 07:24) skin reaction hydromorphone [From Dilaudid] Adverse Reaction (Intermediate, Verified 12/01/20 07:24) Vomiting adhesive tape Adverse Reaction (Mild, Verified 12/01/20 07:24) RED SKIN Height: 1.52 m Weight: 83.461 kg Patient Problems: Current Active Problems Pelvic pain in female (Acute) Heavy menstrual bleeding (Acute) Severe dysmenorrhea (Acute) Endometriosis (Acute) Previous section (Acute) Pelvic adhesions (Acute) - VTE Risk Labs: VTE Related Lab Results Hgb 8.8 g/dL (12.2-16.2) L D 12/02/20 06:28 Hct 26.8 % (37.0-47.0) L 12/02/20 06:28 BUN 11 mg/dl (7-17) 12/02/20 06:28 Creatinine 0.60 mg/dl (0.52-1.04) 12/02/20 06:28 Estimated Creat Clear 179 mL/min (50-200) 12/02/20 06:28 Clinical Trial Participant: No - Prophylaxis VTE Prophylaxis Ordered?: Yes Types of VTE Prophylaxis: IPCS Knee High Location of Applied Device: Bilateral Lower Extremeties
--- NOTE | 2020-12-02 12:28 | PC.NURSE ---
dr. irwin rounding on patient now. report given
--- NOTE | 2020-12-02 13:00 | PC.NURSE ---
nurse veterinary practice manager in room talking with visitor and patient.
--- NOTE | 2020-12-02 13:23 | PC.NURSE ---
patient sitting up in bed talking with visitor. I medicated her for pain per mar. no other needs.
--- NOTE | 2020-12-02 13:41 | HMH.ACPN2 ---
Internal Medicine - PN: Subj *Date: 12/02/20 *Time: 13:41 Interval history: POD #1 abdominal hysterectomy procedure complicated by extensive adhesions and significant blood loss Hgb 10.9 in PACU and 8.8 this morning Having some difficulty with pain management but tolerating po and voiding without difficulty Exam Vital signs and Labs for Last 24 Hours: Temp Pulse Resp BP Pulse Ox 98.6 F 88 18 90/61 L 100 12/02/20 12:00 12/02/20 12:00 12/02/20 12:00 12/02/20 12:00 12/02/20 12:00 Laboratory Results - last 24 hr 12/01/20 08:40: Urine Color Yellow, Urine Appearance Clear, Urine pH 7.0, Ur Specific Radcliffe 1.020, Urine Protein Negative, Urine Glucose (UA) Negative, Urine Ketones Negative, Urine Blood Negative, Urine Nitrate Negative, Urine Bilirubin Negative, Urine Urobilinogen 0.2, Ur Leukocyte Esterase Negative, Urine RBC Occasional, Urine WBC 3-5, Ur Squamous Epith Cells Occasional 12/01/20 11:42: Blood Type O Positive, Antibody Screen Negative, Crossmatch (AHG) See Detail 12/01/20 16:54: Hgb 10.3 L, Hct 31.5 L 12/02/20 06:28: Hgb 8.8 L D, Hct 26.8 L 12/02/20 06:28: Sodium 136, Potassium 4.0, Chloride 107, Carbon Dioxide 27, Anion Gap 6.0, BUN 11, Creatinine 0.60, Estimated Creat Clear 179, Estimated GFR 117, Est GFR ( Amer) 141, Glucose 120 H, Calcium 7.9 L I & O for Last 24 hours: Intake & Output 11/30/20 12/01/20 12/02/20 12/03/20 11:59 11:59 11:59 11:59 Intake Total 1999 Output Total 2399 / 240 Balance 1999 -310 / -310 Narrative: CONSTITUTIONAL: no acute distress HEENT: mucous membranes moist PULMONARY: breathing unlabored without audible wheezes CV: no tachycardia or visible JVD; normal LE peripheral pulses ABD: soft, ND; appropriately tender but no rebound/guarding SKIN: incision well approximated with shruthi; no drainage, erythema or induration EXT: no edema LEs NEURO: alert/oriented, no altered mental status PSYCH: appropriate mood and demeanor without anxiety/depression Assessment and Plan (1) Heavy menstrual bleeding Status: Acute Category: Medical Code(s): N92.0 - Excessive and frequent menstruation with regular cycle (2) Severe dysmenorrhea Status: Acute Category: Medical Code(s): N94.6 - Dysmenorrhea, unspecified (3) Pelvic pain in female Status: Acute Category: Medical Code(s): R10.2 - Pelvic and perineal pain (4) Endometriosis Status: Acute Category: Medical Code(s): N80.9 - Endometriosis, unspecified (5) Pelvic adhesions Status: Acute Category: Medical Code(s): N73.6 - Female pelvic peritoneal adhesions (postinfective) (6) Previous section Problem details: x3 Status: Acute Category: Surgical Code(s): Z98.891 - History of uterine scar from previous surgery - Assessment and plan all Dx Assessment and Plan for all problems:: Advance postop care as tolerated Hgb stable; will start on po FeSO4 Possible discharge home tomorrow
--- NOTE | 2020-12-02 15:19 | PC.NURSE ---
patient up walking around room. no current needs voiced.
--- NOTE | 2020-12-02 15:50 | PC.NURSE ---
no changes noted from previous assessment. pt has been up walking throughout the day around room. passing gas. active x 4 bowel sounds and lungs cta. patient reports intermittent non productive cough. iv saline locked. incision remains open to air. c/d/i. no s/s/ of infection noted. patient has been transitioned to po pain meds and have been tolerating this well. at bedside. call light within reach. no needs
--- NOTE | 2020-12-02 20:55 | PC.NURSE ---
Patient requested another dose of stool softener at this time. Will medicate per MAR
[2020-12-03 04:00] VITALS: BP 93/48; PULSE 67; RESP 18; TEMP 37.2; O2SAT 100
--- NOTE | 2020-12-03 04:00 | PC.NURSE ---
NO ACUTE CHANGES THIS SHIFT AT REASSESSMENT. LUNGS CTA AND BOWELS ACTIVE X4. PATIENT'S PAIN IS WELL CONTROLLED. PATIENT IS AMBULATORY AND INDEPENDENT. WOUND CARE WAS DONE AT THIS TIME. INCISION CLEANED WITH 1/2 PEROXIDE AND STERILE WATER. INCISION IS CLEAN, DRY AND INTACT WITH NO DRAINAGE NOTED. SHE IS TOLERATING HER DIET AND WOULD LIKE TO CONTINUE TO ADVANCE IN THE AM, WELL TRANSITION TO PO TORADOL WHEN SHE IS ON A REGULAR DIET. PATIENT HAS NO NOTABLE EDEMA. WILL CONTINUE TO MONITOR.
--- NOTE | 2020-12-03 06:32 | PC.NURSE ---
ALL CARE AND CHARTING UNDER MY SUPERVISION
[2020-12-03 08:00] VITALS: BP 90/48; PULSE 75; RESP 18; TEMP 37.2; O2SAT 96
--- NOTE | 2020-12-03 08:55 | PC.NURSE ---
Dr. Morrison at bedside rounding on patient. DR. Morrison states to keep patient until tomorrow. DR. morrison states he will let dr. irwin know.
--- NOTE | 2020-12-03 09:24 | HMH.ACPN2 ---
Internal Medicine - PN: Subj *Date: 12/03/20 *Time: 09:24 Interval history: She is 48 hours post YOVANNY and doing well. Her pain is well controlled. She is eating and drinking and ambulating. Exam Vital signs and Labs for Last 24 Hours: Temp Pulse Resp BP Pulse Ox 98.9 F 75 18 90/48 L 96 12/03/20 08:00 12/03/20 08:00 12/03/20 08:00 12/03/20 08:00 12/03/20 08:00 I & O for Last 24 hours: Intake & Output 11/30/20 12/01/20 12/02/20 12/03/20 11:59 11:59 11:59 11:59 Intake Total 1999 / 2089 Output Total 240 / 2400 Balance 1999 -310 / -310 - Constitutional no acute distress - *Routine HEENT Exam Head: Present: normocephalic Eye: Present: EOMI, PERRL ENT: Present: mucous membranes moist - *Routine Abdominal Exam Present: soft, normoactive bowel sounds. Absent: tenderness Comments: Her incision is clean and dry. Staple line is intact. Assessment and Plan (1) Heavy menstrual bleeding Status: Acute Category: Medical Code(s): N92.0 - Excessive and frequent menstruation with regular cycle (2) Severe dysmenorrhea Status: Acute Category: Medical Code(s): N94.6 - Dysmenorrhea, unspecified (3) Pelvic pain in female Status: Acute Category: Medical Code(s): R10.2 - Pelvic and perineal pain (4) Endometriosis Status: Acute Category: Medical Code(s): N80.9 - Endometriosis, unspecified (5) Pelvic adhesions Status: Acute Category: Medical Code(s): N73.6 - Female pelvic peritoneal adhesions (postinfective) (6) Previous section Problem details: x3 Status: Acute Category: Surgical Code(s): Z98.891 - History of uterine scar from previous surgery - Assessment and plan all Dx Assessment and Plan for all problems:: She is doing very well this morning. She will be seen by Dr. Jordan in the morning and sent home tomorrow.
--- NOTE | 2020-12-03 10:20 | PC.NURSE ---
went to check on patient. pt reports headache and nauseated. pain medication given 2 hours prior. patient requests zofran and simethicone for gas. nurse giving this. will continue to monitor.
--- NOTE | 2020-12-03 10:48 | PC.NURSE ---
pt reports that she still has a headache. spoke with patient about if she drinks caffeine at home. pt reports she drinks coffee. made patient a cup of coffee and will re-evaluate once she is finished. [facility]
--- NOTE | 2020-12-03 11:30 | PC.NURSE ---
patient up walking around room. states she feels much better after cup of coffee. at bedside. no further needs.
--- NOTE | 2020-12-03 12:17 | PC.NURSE ---
lunch tray given to patient. resting in bed. no further needs voiced.
[2020-12-03 15:55] VITALS: BP 92/53; PULSE 74; RESP 20; TEMP 37.2; O2SAT 100
--- NOTE | 2020-12-03 15:55 | PC.NURSE ---
NO CHANGES FROM PREVIOUS ASSESSMENT. LUNGS REMAINS CTA AND BOWEL ACTIVE X4. PT STILL REPORTS INTERMITTENT DRY COUGH. LOW TRANSVERSE INCISION OPEN TO AIR C/D/I. pATIENT HAS BEEN UP WALKING AROUND ROOM TODAY. PASSING GAS, BUT NO BOWEL MOVEMENT. NO EDEMA NOTED AND PULSES 2+. NO FURTHER NEEDS VOICED. MEDICATED FOR PAIN PER DEC. CALL LIGHT WITHIN REACH.
--- NOTE | 2020-12-03 18:44 | PC.NURSE ---
PATIENT RESTING IN BED, MEDICATED FOR PAIN. NO OTHER NEEDS. PT REPORTS SHE IS GOING TO REST.
[2020-12-03 20:00] VITALS: BP 127/53; PULSE 80; RESP 17; TEMP 37.2; O2SAT 100
[2020-12-04 01:00] VITALS: TEMP 36.9
[2020-12-04 04:15] VITALS: BP 101/57; PULSE 65; RESP 18; TEMP 36.6; O2SAT 100
--- NOTE | 2020-12-04 04:18 | PC.NURSE ---
Pt has slept throughout this shift, A&Ox4, BLT lung sounds CTA, Bowels sounds present in all 4 quadrants, Pt low transverse surgical incision CHARLENE, CDI. Pt has been medicated this shift for pain per MAR. Pt on RA Pt denies SOA, N&V
[2020-12-04 07:55] VITALS: BP 104/61; PULSE 81; RESP 18; TEMP 37.2; O2SAT 98
[2020-12-04 09:00] VITALS: O2SAT 98
[2020-12-04 11:51] LABS: Hematocrit 26.7 % (37.0-47.0); Hemoglobin 8.7 g/dL (12.2-16.2)
--- NOTE | 2020-12-04 12:24 | HMH.DCSUM ---
General - General Admission date:: 12/01/20 Discharge date: 12/04/20 HPI HPI: Heavy menstrual bleeding, frequently requiring double protection Moderate-severe dysmenorrhea, causing missed activities Intermittent severe pelvic pain, bilateral but more prominent on left than right Previous infertility issues and diagnosed with endometriosis via laparoscopy Ultimately she reports 5-7 different laparoscopy surgeries for management of endometriosis, noting that Dr. Bobo had to clean her out She also has a history of 3 previous C Sections and reports extensive adhesions noted during surgeries Desires definitive surgical management with hysterectomy and prefers removal of left ovary if right ovary appears normal and able to be preserved Hospital Course Hospital Course: Admitted for surgical management of HMB, pelvic pain and severe dysmenorrhea with hysterectomy known history of endometriosis and pelvic adhesions, which complicated hysterectomy and required supracervical hysterectomy instead of total intra-operative EBL 1000 but postop hgb has been stable at 8.7 she is mildly symptomatic with anemia and being treated with iron she is ready for discharge home on POD #3 Objective Vital signs: Temp Pulse Resp BP Pulse Ox 99.0 F 81 18 104/61 L 98 12/04/20 07:55 12/04/20 07:55 12/04/20 07:55 12/04/20 07:55 12/04/20 07:55 Narrative: CONSTITUTIONAL: no acute distress HEENT: mucous membranes moist PULMONARY: breathing unlabored without audible wheezes CV: no tachycardia or visible JVD; normal LE peripheral pulses ABD: soft, ND; appropriately tender but no rebound/guarding SKIN: incision well approximated with no drainage, erythema or induration EXT: no edema LEs NEURO: alert/oriented, no altered mental status PSYCH: appropriate mood and demeanor without anxiety/depression Results Labs on day of discharge: Labs from last 24 hours 12/04/20 12/01/20 11:25 11:42 Hgb 8.7 L Hct 26.7 L Crossmatch (AHG) See Detail DS: Diagnosis - Discharge Diagnosis (1) Heavy menstrual bleeding Status: Acute (2) Severe dysmenorrhea Status: Acute (3) Pelvic pain in female Status: Acute (4) Endometriosis Status: Acute (5) Pelvic adhesions Status: Acute (6) Previous section Status: Acute Problem details: x3 Discharge Plan - Patient Discharge Instructions ACTIVITY: Continue current activity DIET: regular diet Additional Instructions: No heavy lifting or strenuous activity. Nothing in the vagina for [address] Follow up with Dr. Jordan as scheduled. No driving while taking pain medication Patient Instructions: How to Care for a Surgical Wound, DI for Postoperative Pain - Follow up Plan Follow up with: Khushboo Jordan MD [Staff Physician] - Disposition: Home, Self-Residential Medications: Home Medications Medication Instructions Recorded Confirmed Type Ketorolac Tromethamine [Toradol 10 mg PO Q6H #24 tab 12/04/20 Rx 10mg tablet] Oxycodone HCl [OxyIR 5mg tablet] 10 mg PO Q6HP PRN #24 tablet 12/04/20 Rx Prescriptions/Medication Reconciliation: New Acetaminophen [Acetaminophen 325mg tab] 650 mg PO Q4HP PRN tablet PRN Reason: Mild Pain Oxycodone HCl [OxyIR 5mg tablet] 10 mg PO Q6HP PRN #24 tablet PRN Reason: Moderate To Severe Pain Ketorolac Tromethamine [Toradol 10mg tablet] 10 mg PO Q6H #24 tab - Problem Reconciliation Problems Reviewed?: Yes
--- NOTE | 2020-12-04 14:42 | PC.NURSE ---
Discharge teaching provided, questions encouraged and answered. Pt. and spouse v/u, Discharge paperwork signed by patient.
== END 2020-12-04 14:49 | disposition home or self-care (01) | DRG 743 ==
LOC: OB 06:55
PROVIDERS: Admitting Provider Obstetrics & Gynecology; PCP Family Medicine; Visit Provider Obstetrics & Gynecology
PROC: 0UT90ZZ Resection of Uterus, Open Approach (ICD-10-PCS; CPT 58150; principal; 2020-12-01 08:30)
DX: N92.0 Excessive and frequent menstruation with regular cycle (principal); Z88.5 Allergy status to narcotic agent; Z79.899 Other long term (current) drug therapy; N94.6 Dysmenorrhea, unspecified; N80.9 Endometriosis, unspecified; N73.6 Female pelvic peritoneal adhesions (postinfective)
CPT/HCPCS: 58180; 49999; 36415; 80048; 81001; 82962; 85014; 85018; 86850; 96374; J0670; J2405; J2710

== ENCOUNTER → 2022-06-08 16:06 | Outpatient (CLI) | payer OTHER, SELFPAY ==
[2022-06-08 18:40] LABS: Thyroid Stimulating Hormone 0.69 uIU/mL (0.465-4.68)
[2022-06-10 08:52] LABS: FSH 7.4 mIU/mL (.)
[2022-06-10 10:57] LABS: Estradiol 69.3 pg/mL (.); LH 6.7 mIU/mL (.); Progesterone 0.2 ng/mL (.)
== END ==
PROVIDERS: Visit Provider Obstetrics & Gynecology
DX: N92.0 Excessive and frequent menstruation with regular cycle (principal)
CPT/HCPCS: 36415; 82670; 83001; 83002; 84144; 84443

== ENCOUNTER → 2022-08-12 16:06 | Outpatient (CLI) | payer OTHER, SELFPAY ==
[2022-08-12 17:03] LABS: Basophils # 0.1 K/mm3 (0-0.2); Basophils % 0.8 % (0.1-2.0); Eosinophils % 0.3 % (0.1-12.0); Hemoglobin 14.2 g/dL (12.2-16.2); Lymphocytes % 20.5 % (10-50); Mean Corpuscular HGB Conc 33.1 g/dL (31.8-35.4); Mean Corpuscular Hemoglobin 29.9 pg (27.0-31.2); Mean Corpuscular Volume 90.3 fl (81-99); Mean Platelet Volume 8.4 fl (7.4-10.4); Monocytes # 0.5 K/mm3 (0.1-1.0); Monocytes % 4.9 % (1.7-9.3); Neutrophils # 7.3 K/mm3 (1.8-7.8); Neutrophils % 73.5 % (37.0-80.0); Platelet Count 327 K/mm3 (142-424); Red Blood Count 4.76 M/mm3 (4.20-5.40); Red Cell Distribution Width 12.9 % (11.5-17.5); White Blood Count 9.9 K/mm3 (4.8-10.8)
[2022-08-12 17:06] LABS: Creatine Kinase 94 U/L (30-135); Erythrocyte Sedimentation Rate 15 mm/hr (0-20); Magnesium 1.8 mg/dl (1.6-2.3); Phosphorous 4.3 mg/dl (2.5-4.5)
[2022-08-12 17:07] LABS: Alanine Aminotransferase 22 U/L (12-78); Albumin Level 4.4 g/dl (3.5-5.0); Albumin/Globulin Ratio 1.6 (1.1-1.8); Alkaline Phosphatase 74 U/L (38-126); Anion Gap 18.2 mEq/L (5-15); Aspartate Amino Transferase 29 U/L (14-36); Bilirubin,Total 0.6 mg/dl (0.2-1.3); Blood Urea Nitrogen 11 mg/dl (7-17); Calcium 9.7 mg/dl (8.4-10.2); Carbon Dioxide 27 mmol/L (22.0-30.0); Chloride 98 mmol/L (98-107); Estimated Glomerular Filt Rate 96 ml/min (>60); GFR (African American) 117 ML/MIN (>60); Globulin 2.8 g/dL (1.3-3.2); Glucose 86 mg/dl (74-100); Potassium 4.2 mmoL/L (3.5-5.1); Sodium 139 mmol/L (136-145); Total Protein,Serum 7.2 g/dl (6.3-8.2)
[2022-08-12 17:26] LABS: 25-OH Vitamin D, Total 39.6 ng/mL (30-100)
[2022-08-12 17:39] LABS: Thyroid Stimulating Hormone 0.91 uIU/mL (0.465-4.68)
[2022-08-12 18:14] LABS: Vitamin B12 623 pg/mL (239-931)
[2022-08-12 18:15] LABS: C-Reactive Protein 1.3 mg/L (0-4)
[2022-09-11 22:31] LABS: Antinuclear Antibodies (ANA) Negative
== END ==
PROVIDERS: Nurse Practitioner Family; PCP Family Medicine; Visit Provider Family Medicine
DX: R20.0 Anesthesia of skin (principal); R20.2 Paresthesia of skin; R53.82 Chronic fatigue, unspecified; E66.9 Obesity, unspecified; Z68.34 Body mass index [BMI] 34.0-34.9, adult
CPT/HCPCS: 36415; 80053; 82306; 82550; 82607; 82746; 83735; 84100; 84443; 85025; 85651; 86038; 86140

== ENCOUNTER → 2023-05-24 15:58 | Outpatient (CLI) | payer OTHER, SELFPAY ==
[2023-05-24 18:19] LABS: Thyroid Stimulating Hormone 0.58 uIU/mL (0.465-4.68)
== END ==
LOC: LAB 15:59
PROVIDERS: PCP Family Medicine; Visit Provider Obstetrics & Gynecology
DX: R63.5 Abnormal weight gain (principal); Z79.890 Hormone replacement therapy
CPT/HCPCS: 36415; 84443